=== PATIENT | female | born 1965 | race Caucasian/White ===

== ENCOUNTER → 2016-11-08 | Outpatient (CLI) | payer BC | LOC: MAMO 14:06 | DX: Z12.31 Encounter for screening mammogram for malignant neoplasm of breast (principal) | CPT/HCPCS: G0202 ==

== ENCOUNTER → 2021-08-16 | Outpatient (CLI) | payer BC ==
[~2021-08-16] MED LIST: APPLE CIDER VI600 MG PO; ASPIRIN EC81 MG PO; ATORVASTATIN CA20 MG PO; CLARITIN10 M2 PO; HYDROCHLOROTHIA25 MG PO; LORCET PLUS 7.1 EACH PO; MEGA BIOTIN10000 MCG PO; MULTI-VITAMIN1 EACH PO; NITROGLYCERIN0.4 MG SL; TOPROL XL50 MG PO; VITAMIN B-12100 MCG PO; VITAMIN C1000 MG PO; VITAMIN D210 MCG PO; ZANAFLEX4 M1 PO
[2021-08-16 14:43] LABS: HEMOGLOBIN 17.3 gm/dl (12.3-15.3); RED BLOOD COUNT 5.76 M/UL (4.00-5.10); WHITE BLOOD COUNT 7.2 K/UL (4.5-11.0)
[2021-08-17 10:16] LABS: RHEUMATOID ARTHRITIS FACTOR 10.5 IU/mL (<14.0)
== END ==
LOC: LAB 13:30
PROVIDERS: Otolaryngology
DX: K11.7 Disturbances of salivary secretion (principal); R59.1 Generalized enlarged lymph nodes
CPT/HCPCS: 36415; 82607; 82746; 83540; 84207; 84630; 85025; 85652; 86038; 86140; 86431